=== PATIENT | male | born 1945 | race Caucasian/White ===

== ENCOUNTER → 2016-03-13 | Outpatient (CLI) | payer OTHER ==
[~2016-03-13] MED LIST: CMD5 PO; FRRS300 PO; GLUCOSAMINE PO; OMEG10007 PO; OXYC-57 PO
--- NOTE | 2016-03-13 08:36 | DIAGNOSTIC IMAGING REPORT ---
CHEST CT WITHOUT CONTRAST CT DOSE: 857.82 mGy.cm HISTORY: Follow-up pulmonary nodule. TECHNIQUE: Multiaxial CT images of the chest were performed without contrast. COMPARISON: Chest CT 09/18/2015. FINDINGS: The central airways are patent. No pleural effusions. No pneumothorax. Stable 7 mm irregular pulmonary nodule within the right lower lobe on image 200. There is also a 3 mm subpleural groundglass nodule within the right lung apex on image 74. This is also unchanged. Stable 4 mm subpleural nodule within the right middle lobe on image 218. No new pulmonary nodules identified. No suspicious lytic or blastic osseous lesions. Mild calcified plaque within the aortic arch. No mediastinal or hilar lymphadenopathy. The heart is normal in size. Small hiatus hernia. The visualized liver, spleen, and adrenal glands are unremarkable. IMPRESSION: A stable 7 mm irregular pulmonary nodule within the right lower lobe. Continued follow-up as detailed below. Please refer to below summary of Fleischner criteria recommendations for follow-up of incidental CT nodules (Carmela Verma, Guidelines for management of small pulmonary nodules detected on CT scans: A statement from the Fleischner Society, Radiology 237: [phone].) Low Risk Patient: Minimal or no smoking or other known risk factors for malignancy <=4 mm: No follow-up needed. >4-6 mm: Initial follow-up CT at 12 months; if unchanged, no further follow-up. >6-8 mm: Initial follow-up CT at 6-12 months then at 18-24 months if no change. >8 mm: Follow-up CT at \R\3, 9, 24 months, or PET and/or biopsy. High Risk Patient: History of smoking or other known risk factors <=4 mm: Follow-up at 12 months; if unchanged, no further follow-up. >4-6 mm: Initial follow-up CT at 6-12 months then at 18-24 months if no change. >6-8 mm: Initial follow-up CT at 3-6 months then at 9-12 and 24 months if no change. >8 mm: Same as low risk patient. Note: Nodule size measured as average of length and width. Ground glass or partly solid nodules may require longer follow-up to exclude indolent adenocarcinoma. Electronically signed by: Gerald Wilcox M.D. 03/13/2016 8:34 AM Dictated Date/Time: 03/13/2016 8:28 AM
== END | disposition home or self-care (01) ==
LOC: C.CTS 07:58
PROVIDERS: ATTEND Internal Medicine Pulmonary Disease
DX: R91.1 Solitary pulmonary nodule (principal)

== ENCOUNTER → 2016-09-04 | Outpatient (CLI) | payer OTHER ==
--- NOTE | 2016-09-04 09:27 | DIAGNOSTIC IMAGING REPORT ---
(CHEST) THORAX WITHOUT CT DOSE: 627.89 mGycm HISTORY: Pain Copd; pulmonary NODULE TECHNIQUE: Multiaxial CT images of the chest were performed without contrast. A dose lowering technique was utilized adhering to the principles of ALARA. COMPARISON: 03/13/2016 FINDINGS: Unchanging 7 mm nodule right lower lobe. Minimal atelectasis right lateral costophrenic angle. Lungs otherwise appear clear. No new or interval finding. No significant mediastinal or hilar adenopathy. Atherosclerotic change and ectasia thoracic aorta unchanged. IMPRESSION: 1. Stable 7 mm nodule right lower lobe. 2. Minimal atelectasis right lateral costophrenic angle. 3. Otherwise negative study. 4. Follow-up per Fleischner criteria. Please refer to below summary of Fleischner criteria recommendations for follow-up of incidental CT nodules (Carmela Verma, Guidelines for management of small pulmonary nodules detected on CT scans: A statement from the Fleischner Society, Radiology 237: [phone].) SOLID NODULES Solitary nodule size: <6 mm * low risk patients: no follow-up needed * high risk patients: optional CT at 12 months Solitary nodule size: 6-8 mm * low risk patients: follow-up at 6-12 months, then consider further follow-up at 18-24 months * high risk patients: initial follow-up CT at 6-12 months and then at 18-24 months if no change Solitary nodule size: >8 mm * either low or high risk patients - consider follow-up CT at 3 months, and/or CT-PET, and/or biopsy Multiple nodules size: <6 mm * low risk patients: no routine follow-up * high risk patients: optional CT at 12 months Multiple nodules size: 6-8 mm * low risk patients: follow-up at 3-6 months, then consider further follow-up at 18-24 months * high risk patients: follow-up at 3-6 months, then at 18-24 months if no change Multiple nodules size: >8 mm * low risk patients: follow-up at 3-6 months, then consider further follow-up at 18-24 months * high risk patients: follow-up at 3-6 months, then at 18-24 months if no change Note: newly detected indeterminate nodule in persons 35 years of age or older. * Low risk patients: minimal or absent history of smoking and/or other known risk factors * high risk patients: history of smoking or of other known risk factors (e.g. first degree relative with lung cancer, or exposure to asbestos, radon, uranium) * if a nodule up to 8 mm is partly solid or is ground glass further follow-up is required after 24 months to exclude possible slow growing adenocarcinoma (TEMI) SUBSOIL NODULES Solitary pure ground-glass nodule * nodule size <6 mm - no CT follow-up required * nodule size >=6 mm - follow-up CT at 6-12 months, then every 2 years until 5 years Solitary part-solid nodule * nodule size <6 mm - no CT follow-up required * nodule size >=6 mm - follow-up CT at 3-6 months. If unchanged, and solid component remains <6 mm, then annual follow-up for 5 years Multiple subsolid nodules * nodule size <6 mm - follow-up CT at 3-6 months, consider further follow-up at 2 and 4 years if stable * nodule size >=6 mm - follow-up CT at 3-6 months, subsequent management based on the most suspicious nodule(s) The above report was generated using voice recognition software. It may contain grammatical, syntax or spelling errors. Electronically signed by: Landry Cordero M.D. 09/04/2016 9:26 AM Dictated Date/Time: 09/04/2016 9:20 AM
== END | disposition home or self-care (01) ==
LOC: C.CTS 09:06
PROVIDERS: ATTEND Physician Assistant
DX: J44.9 Chronic obstructive pulmonary disease, unspecified (principal); R91.1 Solitary pulmonary nodule